=== PATIENT | female | born 1945 | race Caucasian/White ===

== ENCOUNTER 2016-10-26 06:25 | Inpatient (IN) | payer MEDICARE, BC ==
[~2016-10-26 06:25] MED LIST: Bupivacaine 0.5%/EPINEPHrine 1:200,000 50 ML MDV ONE; Meropenem 500 MG SDV ONE
[2016-10-26] MEDS ORDERED: Acetaminophen 500 MG Tab PO ONE (06:30)
[2016-10-26] MEDS ORDERED: Celecoxib 200 MG Cap PO ONE (06:30)
[2016-10-26] MEDS ORDERED: Neostigmine Methylsulfate 1 MG/ML 5 ML Syringe ONE (06:38)
[2016-10-26] MEDS ORDERED: Rocuronium 50 MG/5 ML Vial ONE (06:38)
[2016-10-26] MEDS ORDERED: Dexamethasone 4 MG/ML SDV ONE (06:38)
[2016-10-26] MEDS ORDERED: Succinylcholine 200 MG/10 ML MDV ONE (06:38)
[2016-10-26] MEDS ORDERED: Propofol 200 MG/20 ML SDV ONE (06:38)
[2016-10-26] MEDS ORDERED: Ondansetron 4 MG/2 ML SDV ONE (06:38)
[2016-10-26] MEDS ORDERED: Glycopyrrolate 0.2 MG/ML 5 ML MDV ONE (06:38)
[2016-10-26] MEDS ORDERED: Dextrose 5%-Lactated Ringers 1,000 ML IV SCH (07:00)
[2016-10-26] MEDS ORDERED: ceFAZolin 2 GM in Sodium Chloride 0.9% 50 ML IV ONE (07:45)
[2016-10-26] MEDS ORDERED: Linezolid 200 MG/100 ML Bag IRR ONE (08:30)
[2016-10-26] MEDS ORDERED: HYDROmorphone/Normal Saline 15 MG/30 ML PCA IV PRN (08:32)
[2016-10-26] MEDS ORDERED: Naloxone 0.4 MG/ML SDV IVPUSH PRN (08:32)
[2016-10-26] MEDS ORDERED: Naloxone 0.4 MG/ML SDV IV PRN (08:35)
[2016-10-26] MEDS ORDERED: Ketorolac 60 MG/2 ML SDV ONE (08:57)
[2016-10-26] MEDS ORDERED: Ondansetron 4 MG/2 ML SDV IVPUSH PRN (10:32)
[2016-10-26] MEDS: Dextrose 5%-Lactated Ringers 1,000 ML IV SCH ×2 (10:37→17:08)
[2016-10-26] MEDS: PARoxetine 20 MG Tab PO SCH (12:23)
[2016-10-26] MEDS: ceFAZolin 2 GM in Sodium Chloride 0.9% 50 ML IV SCH ×2 (14:01→21:20)
[2016-10-26] MEDS ORDERED: hydrOXYzine HCl 100 MG/2 ML SDV IM ONE (14:45)
[2016-10-26] MEDS ORDERED: Meperidine PF 100 MG/ML Syringe IM ONE (14:45)
[2016-10-27] MEDS: Dextrose 5%-Lactated Ringers 1,000 ML IV SCH (00:30)
[2016-10-27] MEDS: ceFAZolin 2 GM in Sodium Chloride 0.9% 50 ML IV SCH (05:13)
[2016-10-27] MEDS ORDERED: Propofol 200 MG/20 ML SDV ONE (06:10)
[2016-10-27] MEDS ORDERED: Glycopyrrolate 0.2 MG/ML 2 ML SDV IVPUSH ONE (07:30)
[2016-10-27] MEDS: PARoxetine 20 MG Tab PO SCH (10:22)
[2016-10-27 12:12] VITALS: BP 106/53
--- NOTE | 2016-10-27 17:52 | DISCH ---
FINAL DIAGNOSES: 1. Incarcerated ventral hernia. 2. Separate umbilical hernia. 3. Significant abdominal and pelvic adhesions. 4. Large gastric bezoar. 5. History of anxiety. 6. History of vaginal prolapse and cystocele. OPERATIVE PROCEDURES: On 10/26: 1. Diagnostic laparoscopy with:. a. Repair of umbilical hernia with mesh. b. Separate incarcerated ventral hernia with mesh. c. Placement of Interceed mesh to limit recurrent adhesion formation. On 10/27, the patient had upper GI endoscopy with antral biopsies for CLOtest. HOSPITAL COURSE: This is a 70-year-old who presented this week with increasing pain associated with a nonreducible upper abdominal midline hernia. After preoperative evaluation and discussion, wished to proceed with repair. This was repaired laparoscopically on the date of admission. The patient also had a small umbilical hernia, which was also covered with mesh and repaired. She had quite a bit in way of some pelvic adhesions which were then taken down and Interceed mesh was placed underneath the mesh and down toward the pelvis to limit recurrent adhesion formation. On 10/27, the patient underwent upper endoscopy to investigate some epigastric discomfort symptoms somewhat present. She was noted to have a very large gastric bezoar and will be sent home with an anti-bezoar diet. I had the anti-bezoar diet reviewed with the patient and prior to discharge. I also had the patient seen by Arya on the first postoperative visit regarding anti-bezoar diet. Otherwise, she will be discharged home today. She is to continue with home medications plus Dilaudid 2 mg p.o. q.4 hours p.r.n. pain, #20, Tylenol as needed for lesser pain. Follow up with Dr. Ramires at [facility] on 11/06/2016 and with Dietary to see the patient regarding anti- bezoar diet at that time. We will probably plan an upper endoscopy somewhere around six weeks to see if the bezoar has cleared. If that does not by dietary manipulation, we would consider then some promotility medication such as erythromycin and Reglan.
--- NOTE | 2016-10-28 10:31 | OR ---
DATE OF PROCEDURE: 10/26/2016 PREOPERATIVE DIAGNOSIS: Incarcerated ventral hernia. POSTOPERATIVE DIAGNOSES: 1. Incarcerated ventral hernia. 2. Separate umbilical hernia. 3. Extensive pelvic and abdominal wall adhesions. OPERATIVE PROCEDURES: Diagnostic laparoscopy with lysis of adhesions and: 1. Repair of incarcerated ventral hernia with mesh (73772). 2. Umbilical hernia repair with mesh (19328). 3. Placement of Interceed mesh to displace mesh and pelvic and abdominal wall from small bowel to limit recurrent adhesion formation (51340). ANESTHESIA: General. INDICATION FOR PROCEDURE: This 70-year-old female is presenting with an increasingly symptomatic incarcerated ventral hernia. Plan is to proceed with diagnostic laparoscopy with laparotomy if necessary with repair of the hernia with mesh. Potential risks including bleeding, infection, injury to the underlying viscera, problems with the mesh becoming infected or hernia recurring, as well as the remote possibility of cardiopulmonary, septic, or hemorrhagic complications leading to were discussed, and the patient wishes to proceed. DETAILS OF PROCEDURE: The patient was taken to the operating room and placed in a supine position. After general endotracheal anesthesia was induced, a Mullen catheter was inserted, and the abdomen was prepped and draped. In the left lateral midabdomen, a transverse incision was made and the peritoneal cavity entered under direct vision with an Optiview trocar and inflated to 15 mmHg with CO2. Laparoscope was then reinserted. No underlying trocar insertion site injuries were seen. Following this, 5 additional trocars were placed across the midabdomen and general exploration was undertaken. No underlying trocar insertion site injuries were seen. There were some adhesions located between the lower abdomen and pelvis, between small bowel and omentum. These were taken down with a combination of blunt and sharp dissection along with Harmonic scalpel dissection. Once these were completed, the area of herniation was inspected. The patient was noted to have a hernia occurring more or less at the base of the falciform ligament. Large amount of falciform ligament and the fat associated with that had prolapsed into the hernia. The peritoneum overlying this was incised, and the hernia site opened slightly with electrocautery. This allowed progressive reduction of the hernia contents which were then excised. The patient was noted to have a small associated umbilical hernia as well which was not incarcerated. At this point, a Ventralight hernia mesh with the positioning balloon system was selected, this being a 15.2 cm round configured mesh. This was soaked in antibiotic-containing saline solution and placed in the intraperitoneal location. Over the center of the ventral hernia, a small stab wound was placed and the balloon inflation catheter was then pulled up through that opening. The balloon was then inflated, and this provided good coverage over the primary ventral hernia as well as the umbilical hernia. The mesh was then fixed with 2 sequential layers of absorbable tacking screws. Upon completion of that, the balloon was deflated and withdrawn. Good fixation and coverage around the area of herniation were confirmed. At that point, no further problems were noted. Two 5-mm trocars were then placed, one in the left upper quadrant and one along in the left lower quadrant to limit recurrent adhesion formation. Interceed mesh was then placed underneath the mesh as well as extending down into the pelvis to limit recurrent adhesion formation between the pelvic and abdominal wall areas. At that point, the trocars were sequentially removed. The fascia at the 12-mm trocar site used for the camera was then closed with 0 Vicryl stitch and the skin with 4-0 Vicryl stitch at each incision. Dressing was applied. The patient was taken to the recovery room in a satisfactory condition. There were no evident complications. Yg Ramires MD /[id number]
--- NOTE | 2016-10-28 11:19 | OR ---
DATE OF PROCEDURE: 10/27/2016 PREOPERATIVE DIAGNOSIS: Epigastric discomfort. POSTOPERATIVE DIAGNOSIS: Epigastric discomfort associated with large gastric bezoar. OPERATIVE PROCEDURE: Upper GI endoscopy with antral biopsies for CLOtest. ANESTHESIA: IV sedation. INDICATION FOR PROCEDURE: The patient had been noting with some epigastric discomfort for some time, also had some history of ulcers in the past. Plan is to proceed with upper GI endoscopy with biopsies as indicated. Potential risks including bleeding and perforation were discussed and the patient wishes to proceed. DETAILS OF PROCEDURE: The patient was taken to the operating room and placed in a left lateral decubitus position. IV sedation was administered, after which the upper GI endoscope was passed orally through the length of the esophagus and into the stomach with retroflexion view of the fundus, and thereafter through the pyloric channel and into the junction of the third and fourth portions of the duodenum. Findings included normal hypopharynx, larynx, upper esophageal sphincter, and esophageal body. At the EG junction, there was no significant hiatal hernia present or inflammation. Upon entering the stomach, a very large gastric bezoar consisting of old vegetable matter predominantly was identified. This was associated with some redness with bezoar overlaid, but no real gastritis per se. The pyloric channel was widely opened, i.e. there was no gastric outlet obstruction, and the visualized portion of the duodenum was unremarkable. At this point, biopsies were obtained from the antrum and sent to establish the patient's H. pylori status by means of the CLOtest. The gastroscope was removed. The patient was taken to the recovery room in satisfactory condition. Yg Ramires MD /[id number]
== END 2016-10-27 13:35 | disposition home or self-care (01) | DRG 337 ==
LOC: JP.SDS 06:25 → JP.SDSSCHI 06:25 → EDSTATUS 07:30 → JP.MS 08:50
PROVIDERS: ADMIT Surgery; ATTEND Surgery
PROC: 3E0M05Z Introduction of Adhesion Barrier into Peritoneal Cavity, Open Approach (ICD-10-PCS; principal; 2016-10-26)
PROC: 0WUF4JZ Supplement Abdominal Wall with Synthetic Substitute, Percutaneous Endoscopic Approach (ICD-10-PCS; principal; 2016-10-26)
PROC: 0DNW4ZZ Release Peritoneum, Percutaneous Endoscopic Approach (ICD-10-PCS; principal; 2016-10-26)
PROC: 0DB68ZX Excision of Stomach, Via Natural or Artificial Opening Endoscopic, Diagnostic (ICD-10-PCS; 2016-10-27)
DX: K43.6 Other and unspecified ventral hernia with obstruction, without gangrene (principal); K42.9 Umbilical hernia without obstruction or gangrene; T18.2XXA Foreign body in stomach, initial encounter; X58.XXXA Exposure to other specified factors, initial encounter; K66.0 Peritoneal adhesions (postprocedural) (postinfection); R10.13 Epigastric pain; F41.9 Anxiety disorder, unspecified
CPT/HCPCS: 36415; 80053; 83735; 84100; 85027; 87081; 88302; 94762; A9270-GY; C1781; J0330; J0690; J1100; J1170; J1885; J2020; J2175; J2185; J2405; J2704; J2710; J3010; J3410; J3490; J7042; J7050

== ENCOUNTER 2016-12-24 07:14 | Day surgery (SDC) | payer MEDICARE, BC ==
[~2016-12-24 07:14] MED LIST changes: -Bupivacaine 0.5%/EPINEPHrine 1:200,000 50 ML MDV ONE; -Meropenem 500 MG SDV ONE; +Propofol 200 MG/20 ML SDV ONE; +fentaNYL 100 MCG/2 ML SDV ONE
[2016-12-24] MEDS ORDERED: Dextrose 5%-Lactated Ringers 1,000 ML IV SCH (07:45)
[2016-12-24] MEDS ORDERED: Glycopyrrolate 0.2 MG/ML 2 ML SDV IVPUSH ONE (08:30)
[2016-12-24] MEDS ORDERED: Propofol 200 MG/20 ML SDV ONE (09:46)
[2016-12-24 10:35] VITALS: BP 116/76
--- NOTE | 2016-12-25 16:53 | OR ---
DATE OF PROCEDURE: 12/24/2016 PREOPERATIVE DIAGNOSIS: Epigastric discomfort with history of bezoar. POSTOPERATIVE DIAGNOSES: 1. Persistent bezoar. 2. Mild diffuse gastritis. OPERATIVE PROCEDURE: Esophagogastroduodenoscopy with antral biopsies for CLOtest. ANESTHESIA: IV sedation. INDICATION FOR PROCEDURE: This is a 71-year-old female presenting with some epigastric discomfort with history of bezoar. She has been on an anti-bezoar diet for the past six weeks or so and is undergoing followup endoscopy to see if it is cleared. She has not been on any medical management except for the anti-bezoar diet. She continues on the omeprazole 20 mg a day. Plan will be to do an upper GI endoscopy with biopsies as indicated. Potential risks including bleeding and perforation were discussed, and the patient wishes to proceed. PROCEDURE IN DETAIL: The patient was taken to the operating room, placed in left lateral decubitus position. IV sedation was administered, after which the upper GI endoscope was passed orally through the length of esophagus and stomach with retroflexion view of the fundus, and thereafter through the pyloric channel into the proximal duodenum. Findings included normal hypopharynx, larynx, upper esophageal sphincter, and esophageal body. At the EG junction, a small hiatal hernia without significant inflammation was seen. Within the stomach at this time, no retained food, otherwise a small amount of bile present indicating that the anti-bezoar diet has been successful as far as the bezoar clearing. There was some mild diffuse redness in the stomach. Otherwise pyloric channel and the duodenum junction, 3rd and 4th portions were unremarkable. At this point, biopsies were obtained from the antrum and sent for CLOtest for H. pylori. Minimal bleeding from the biopsy sites was seen and the procedure then concluded. The patient was taken to the recovery room in satisfactory condition. Recommendation would be to continue the anti-bezoar diet long-term along with the omeprazole. If CLOtest is positive, we will contact regarding anti H. pylori regimen; otherwise, she will be following with Dr. Winkler in roughly 2 weeks at [facility] to follow up her abdominal bloating symptoms. Yg Ramires MD /[id number]
== END 2016-12-24 10:48 | disposition home or self-care (01) ==
LOC: JP.SDS 07:14
PROVIDERS: ATTEND Surgery
DX: K29.70 Gastritis, unspecified, without bleeding (principal); K44.9 Diaphragmatic hernia without obstruction or gangrene; T18.2XXA Foreign body in stomach, initial encounter; K59.09 Other constipation; F41.9 Anxiety disorder, unspecified; E11.9 Type 2 diabetes mellitus without complications; Z88.1 Allergy status to other antibiotic agents
CPT/HCPCS: 43239; 87081; J2704; J3010; J7042; J3490

== ENCOUNTER 2017-01-31 06:44 | Day surgery (SDC) | payer MEDICARE, BC ==
[2017-01-31] MEDS ORDERED: Dextrose 5%-Lactated Ringers 1,000 ML IV SCH (07:45)
[2017-01-31] MEDS ORDERED: Propofol 200 MG/20 ML SDV ONE (08:03)
[2017-01-31] MEDS ORDERED: Midazolam 1 MG/ML 2 ML SDV ONE (08:04)
[2017-01-31] MEDS ORDERED: fentaNYL 100 MCG/2 ML SDV ONE (08:04)
[2017-01-31 10:06] VITALS: BP 117/74
--- NOTE | 2017-02-03 12:32 | OR ---
DATE OF PROCEDURE: 01/31/2017 PREOPERATIVE DIAGNOSIS: Positive FIT test. POSTOPERATIVE DIAGNOSIS: Single 1 cm polyp at the distal sigmoid colon (30 cm from the dentate line). OPERATIVE PROCEDURE: Flexible colonoscopy with: 1. Polypectomy by snare technique (21665). 2. Injection of Adriana ink into colonic submucosa adjacent to a polypectomy site (79932). ANESTHESIA: IV sedation. INDICATION FOR PROCEDURE: The patient presents for colonoscopy following a positive FIT test. Plan is to proceed with a flexible colonoscopy with biopsies and/or polypectomy as indicated. Potential risks including bleeding and perforation were discussed, and the patient wishes to proceed. DETAILS OF PROCEDURE: The patient was taken to the operating room and placed in a left lateral decubitus position. IV sedation was administered, after which the initial digital rectal exam was performed. It was unremarkable. Colonoscope was then passed through the rectum with retroflexion revealing uncomplicated hemorrhoidal columns. The scope was eventually passed to the level of cecum. The prep was fairly good with there being only small amount of liquid stool present. The only abnormality noted was that of a single 1 cm polyp located at 30 cm from the dentate line. This was encircled at its base with the cautery snare and excised by that means. It was then placed in a basket and retrieved. Prior to removal of the scope of 4 mL of Ink was injected in submucosa adjacent to polypectomy site in the event that the histologic findings mandate a subsequent resection. Good hemostasis was noted and the polyp was removed. Apart from that, there were no areas of diverticular disease. No areas of colitis. No areas of additional polyps or signs of neoplasia. The scope was withdrawn, the above findings reconfirmed, and the procedure was then concluded. The plan will be to see the patient back next Friday to discuss followup. If this comes back tonight, we will call her and schedule a followup colonoscopy in 1-2 years depending on specific findings on the colonoscopy specimen. Yg Ramires MD /[id number]
== END 2017-01-31 10:30 | disposition home or self-care (01) ==
LOC: JP.SDS 06:44
PROVIDERS: ATTEND Surgery
DX: D12.6 Benign neoplasm of colon, unspecified (principal); Z88.1 Allergy status to other antibiotic agents; Z88.8 Allergy status to other drugs, medicaments and biological substances
CPT/HCPCS: 45381; 45385; J2250; J2704; J3010; J7042; 88305

== ENCOUNTER 2017-04-15 07:56 | Day surgery (SDC) | payer MEDICARE, BC ==
[~2017-04-15 07:56] MED LIST changes: +Bupivacaine 0.5%/EPINEPHrine 1:200,000 50 ML MDV ONE; -Propofol 200 MG/20 ML SDV ONE; -fentaNYL 100 MCG/2 ML SDV ONE
[2017-04-15] MEDS ORDERED: Acetaminophen 500 MG Tab PO ONE (08:00)
[2017-04-15] MEDS: Dextrose 5%-Lactated Ringers 1,000 ML IV SCH ×2 (08:16→18:33)
[2017-04-15] MEDS ORDERED: cefOXitin 2 GM in Sodium Chloride 0.9% 50 ML IV ONE (09:00)
[2017-04-15] MEDS ORDERED: Ropivacaine 25 ML, Dexamethasone 8 MG, EPINEPHrine 0.4 MG, Sodium Chloride 0.9% 52.6 ML NERVRT SCH ×4 (10:00)
[2017-04-15] MEDS ORDERED: fentaNYL 250 MCG/5 ML SDV ONE ×2 (10:13→12:05)
[2017-04-15] MEDS ORDERED: Rocuronium 50 MG/5 ML Vial ONE (10:13)
[2017-04-15] MEDS ORDERED: Ondansetron 4 MG/2 ML SDV ONE (10:13)
[2017-04-15] MEDS ORDERED: Propofol 200 MG/20 ML SDV ONE (10:13)
[2017-04-15] MEDS ORDERED: Succinylcholine/Normal Saline 200 MG/10 ML Syringe ONE (10:13)
[2017-04-15] MEDS ORDERED: Dexamethasone 4 MG/ML SDV ONE (10:13)
[2017-04-15] MEDS ORDERED: Neostigmine Methylsulfate 1 MG/ML 5 ML Syringe ONE (10:13)
[2017-04-15] MEDS ORDERED: HYDROmorphone/Normal Saline 15 MG/30 ML PCA IV PRN (10:57)
[2017-04-15] MEDS ORDERED: Naloxone 0.4 MG/ML SDV IV PRN (11:01)
[2017-04-15] MEDS ORDERED: Labetalol 20 MG/4 ML Syringe ONE (12:33)
[2017-04-15] MEDS ORDERED: Lactated Ringers 1,000 ML ONE (12:33)
[2017-04-15] MEDS ORDERED: fentaNYL 100 MCG/2 ML SDV IVPUSH ONE (12:49)
[2017-04-15] MEDS ORDERED: hydrOXYzine HCl 100 MG/2 ML SDV IM ONE (12:49)
[2017-04-15] MEDS ORDERED: Ondansetron 4 MG/2 ML SDV IVPUSH PRN (14:00)
[2017-04-15] MEDS: Acetaminophen/oxyCODONE 325-5 MG Tab PO PRN (15:51)
[2017-04-15] MEDS ORDERED: Pantoprazole 40 MG Vial IVPUSH SCH (16:00)
[2017-04-15] MEDS: cefOXitin 2 GM in Sodium Chloride 0.9% 50 ML IV SCH ×2 (16:07→22:36)
[2017-04-16] MEDS: Dextrose 5%-Lactated Ringers 1,000 ML IV SCH (03:30)
[2017-04-16] MEDS: cefOXitin 2 GM in Sodium Chloride 0.9% 50 ML IV SCH (05:31)
[2017-04-16] MEDS: Acetaminophen/oxyCODONE 325-5 MG Tab PO PRN ×2 (05:40→09:57)
[2017-04-16] MEDS ORDERED: PARoxetine 20 MG Tab PO SCH (09:00)
--- NOTE | 2017-04-16 09:42 | DISCH ---
ADMISSION DIAGNOSES: 1. Biliary dyskinesia. 2. Abdominal bezoar. 3. Anxiety. DISCHARGE DIAGNOSIS: Diagnostic laparoscopy with cholecystectomy and placement of Interceed mesh for biliary dyskinesia and extensive abdominal adhesions. Date of surgery 04/15/2017; Yg Ramires M.D. HISTORY: Patrizia Salcedo is a 71-year-old female with biliary dyskinesia. After preoperative evaluation, discussion of possible risks and possible complications, she wished to proceed with surgical procedure. HOSPITAL COURSE: Patrizia had her surgery on 04/15/2017. She had no operative complications. On postop day #1, her vital signs were stable. Pain controlled. Activity good. She was able to be discharged to home. DISPOSITION: Discharged to home. CONDITION: Stable and improving. FOLLOWUP APPOINTMENT: Sonia Jin PA-C, on 04/21/2017 at 10:00 a.m. DISCHARGE MEDICATIONS: New prescription: Percocet 5/325 mg 1 tablet every 4 hours p.r.n. pain, #20. She is sure she has some Percocet left at home. She is to resume her home medications. DIET AFTER DISCHARGE: Usual diet as tolerated. Drink 8 to 10 glasses of water a day. ACTIVITY: No lifting greater than 10 pounds for 2 weeks. Driving, do not drive for 2 weeks. Shower/bathing, may shower. DISCHARGE INSTRUCTIONS: Notify provider if any fever, nausea, or vomiting. Keep site clean and dry. Wear abdominal binder for 2 weeks and as tolerated. Use incentive spirometer 10 times every hour while awake for 1 week.
[2017-04-16 11:05] VITALS: BP 103/56
--- NOTE | 2017-04-21 14:17 | OR ---
DATE OF PROCEDURE: 04/15/2017 PREOPERATIVE DIAGNOSIS: Biliary dyskinesia. POSTOPERATIVE DIAGNOSES: 1. Biliary dyskinesia. 2. Extensive intraabdominal and pelvic adhesions. OPERATIVE PROCEDURES: 1. Diagnostic laparoscopy with:. a. Cholecystectomy (94615). b. Placement of Interceed mesh to displace pelvic and abdominal wall from underlying viscera to reduce recurrent adhesion formation (46064). ANESTHESIA: General. ASSISTANTS: Sonia Jin PA-C and FELIPA Arango3. INDICATION FOR PROCEDURE: This is a 71-year-old presenting with some upper abdominal pain and postprandial nausea. CCK-stimulated HIDA scan was obtained which showed a below normal ejection fraction. In lieu of availability of CCK, Ensure was given and this also in addition to resulting in a below normal ejection fraction, had significant reproduction of the patient's symptoms. Given this, she is to undergo a cholecystectomy. Potential risks of the procedure including bleeding, infection, injury to underlying viscera such as common bile duct, potential persistence of symptoms postoperatively, as well as possibility of cardiopulmonary, septic, or hemorrhagic complications leading to were all discussed, and the patient wishes to proceed. DETAILS OF PROCEDURE: The patient was taken to the operating room, placed in a supine position. After general endotracheal anesthesia was induced, the abdomen was prepped and draped. A transverse subumbilical incision was made and peritoneal cavity entered under direct vision and inflated to 15 mmHg pressure with CO2. The patient was noted to have quite striking adhesions between the previously placed upper abdominal mesh as well as some adhesions between the small bowel and pelvic sidewall on the left side. At this point, a 12- mm trocar was placed in the epigastric area above the level of adhesions as well as a single 5-mm right abdominal trocar. Between these two trocars, these adhesions were then sequentially taken down with Harmonic scalpel, and at that point, the attention was taken to the cholecystectomy. The gallbladder was retracted anterolaterally and was noted to have a fair bit of edema and the dissection began on the gallbladder neck, continued around the gallbladder neck cystic duct junction. Once that area was well delineated as was the adjacent cystic artery, both structures were clipped 3 times proximally and once distally and divided. The gallbladder was then dissected off the gallbladder bed using Harmonic scalpel and through the epigastric trocar site was noted again some fine sludge within it when inspected off the field. The area of dissection was inspected. No bleeding or other problems were noted at this point. To limit recurrent adhesion formation between both the pelvic wall and the upper abdominal mesh, Interceed mesh was placed across those areas to displace the viscera from those surfaces and reduce the likelihood of recurrent adhesion formation. Once this was accomplished, the trocars were sequentially removed. The fascia at the 12 mm sites was closed with 0 Vicryl stitch and the skin with 4-0 Vicryl skin stitch. Dressing was applied. The patient was taken to the recovery room in satisfactory condition. Physician anesthetic assistant, Sonia Jin, played an essential role in assisting in this case, helping to position the patient, retract structures as needed, as well as suturing and cutting sutures when indicated. Her presence improved patient's safety and decreased the operative time. Yg Rmaires MD /[id number]
== END 2017-04-16 12:55 | disposition home or self-care (01) ==
LOC: JP.SDS 07:56 → JP.2SS 12:40 → JP.SDS 04-16 12:55
PROVIDERS: ATTEND Surgery
DX: K81.1 Chronic cholecystitis (principal); N73.6 Female pelvic peritoneal adhesions (postinfective); F41.9 Anxiety disorder, unspecified; Z88.1 Allergy status to other antibiotic agents; Z86.010 Personal history of colon polyps; Z79.899 Other long term (current) drug therapy; Z87.891 Personal history of nicotine dependence
CPT/HCPCS: 36415; 44700; 47562; 82247; 84075; 85027; 88304; A9270; C9113; J0171; J0694; J1100; J2405; J2704; J2795; J3010; J3410; J7042; J7050; J7120

== ENCOUNTER 2020-04-04 05:59 | Day surgery (SDC) | payer MEDICARE ==
[2020-04-04] MEDS ORDERED: Dextrose 5%-Lactated Ringers 1,000 ML IV SCH (06:30)
[2020-04-04] MEDS ORDERED: fentaNYL 100 MCG/2 ML SDV ONE (07:10)
[2020-04-04] MEDS ORDERED: Propofol 200 MG/20 ML SDV ONE (07:10)
[2020-04-04] MEDS ORDERED: Glycopyrrolate 0.2 MG/ML 2 ML SDV ONE (07:50)
[2020-04-04 09:14] VITALS: BP 96/65; PULSE 79
--- NOTE | 2020-04-09 19:38 | OR ---
DATE OF PROCEDURE: 04/04/2020 SURGEON: Yg Ramires MD PREOPERATIVE DIAGNOSIS: History of colon polyps. POSTOPERATIVE DIAGNOSIS: Single recurrent polyp within the rectum. OPERATIVE PROCEDURE: Flexible colonoscopy with polypectomy by snare technique. ANESTHESIA: IV sedation. INDICATIONS FOR PROCEDURE: A 74-year-old female presenting for followup screening colonoscopy. She does have personal history of colon polyps. Plan is to proceed with a colonoscopy with biopsies and/or polypectomy as indicated. Potential risks including bleeding and perforation were discussed and the patient wishes to proceed. DETAILS OF PROCEDURE: The patient was taken to the operating room and placed in a left lateral decubitus position. IV sedation was administered after which the initial digital rectal exam was performed and was unremarkable. The colonoscope was then passed to the level of the cecum. The prep was quite good, only a small amount of liquid stool was present. To that level, there were no diverticula and no areas of colitis. The only area of polyp formation was within the midrectum, i.e. around 10 cm from the dentate line. This was an 8 mm polyp and this was encircled at its base and removed by means of the cautery snare technique and sent for histologic evaluation. Minimal bleeding from the polypectomy site was seen and the procedure then concluded. Assuming that the polyp was a benign adenomatous polyp, the next colonoscopy should be in 3 years. Yg Ramires MD /[id number]
== END 2020-04-04 09:23 | disposition home or self-care (01) ==
LOC: JP.SDS 05:59
PROVIDERS: ATTEND Surgery
DX: Z12.11 Encounter for screening for malignant neoplasm of colon (principal); K62.1 Rectal polyp; Z86.010 Personal history of colon polyps; Z88.1 Allergy status to other antibiotic agents
CPT/HCPCS: 45385; 88305; J2704; J3010; J3490; J7121

== ENCOUNTER 2020-07-11 06:42 | Day surgery (SDC) | payer MEDICARE ==
[2020-07-11] MEDS ORDERED: fentaNYL 100 MCG/2 ML SDV ONE (07:20)
[2020-07-11] MEDS ORDERED: Propofol 200 MG/20 ML SDV ONE (07:20)
[2020-07-11] MEDS ORDERED: Dextrose 5%-Lactated Ringers 1,000 ML IV SCH (07:30)
[2020-07-11 08:44] VITALS: BP 149/93; PULSE 69
--- NOTE | 2020-07-23 14:07 | OR ---
DATE OF PROCEDURE: 07/11/2020 SURGEON: Yg Ramires MD PREOPERATIVE DIAGNOSIS: History of gastric bezoar. POSTOPERATIVE DIAGNOSIS: Mild antral gastritis with small amount of retained bile, but no remaining bezoar. OPERATIVE PROCEDURE: Esophagogastroduodenoscopy with antral biopsies for CLOtest. ANESTHESIA: IV sedation. INDICATIONS FOR PROCEDURE: This is a 74-year-old female presenting with history of gastric bezoar. She is presently on omeprazole 20 mg a day and has been on an anti-bezoar type diet. She presents now for followup of upper endoscopy to establish . Potential risks of the procedure including bleeding and perforation were discussed, and the patient wishes to proceed. DETAILS OF PROCEDURE: The patient was taken to the operating room and placed in a left lateral decubitus position. IV sedation was administered, after which the upper GI endoscope was passed orally through the length of the esophagus and the stomach with retroflexion view of the fundus, thereafter through the pyloric channel and into the proximal duodenum. Findings included normal hypopharynx, larynx, upper esophageal sphincter, and esophageal body. In the stomach, there was a small amount of retained bile and some mild redness in the antrum. The previously noted bezoar now is entirely absent. The pyloric channel and proximal duodenum were unremarkable. At this point, biopsies were obtained from the antrum and sent for CLOtest for H pylori. No bleeding from the biopsy site was seen and the procedure then concluded. Recommendation will be to increase the omeprazole dose to 20 mg twice daily and otherwise continue the low residue anti-bezoar type diet. She will be following up with Dr. Winkler in 3 to 4 weeks. Yg Ramires MD /[id number]
== END 2020-07-11 08:55 | disposition home or self-care (01) ==
LOC: JP.SDS 06:42
PROVIDERS: ATTEND Surgery
DX: K29.70 Gastritis, unspecified, without bleeding (principal); Z86.19 Personal history of other infectious and parasitic diseases
CPT/HCPCS: 43239; 87081; J2704; J3010; J7121

== ENCOUNTER 2021-09-06 08:40 | Day surgery (SDC) | payer MEDICARE ==
[~2021-09-06 08:40] MED LIST changes: -Bupivacaine 0.5%/EPINEPHrine 1:200,000 50 ML MDV ONE; +Propofol 200 MG/20 ML SDV ONE; +fentaNYL 100 MCG/2 ML SDV ONE
[2021-09-06] MEDS ORDERED: Dextrose 5%-Lactated Ringers 1,000 ML IV SCH (09:15)
[2021-09-06 12:30] VITALS: BP 170/95; PULSE 74
== END 2021-09-06 12:50 ==
LOC: JP.SDS 08:40
PROVIDERS: ATTEND Surgery
DX: K29.70 Gastritis, unspecified, without bleeding (principal); K44.9 Diaphragmatic hernia without obstruction or gangrene; U07.1 COVID-19
CPT/HCPCS: 43239; 87081; J2704; J3010; J7121; U0002

== ENCOUNTER 2022-01-24 08:56 | Day surgery (SDC) | payer MEDICARE ==
[2022-01-24] MEDS ORDERED: Sodium Chloride 0.9% 10 ML Syringe FLUSH PRN (10:00)
[2022-01-24 10:05] VITALS: BP 157/95; PULSE 82
== END 2022-01-24 10:12 | disposition home or self-care (01) ==
LOC: JP.SDS 08:56
PROVIDERS: ATTEND Ophthalmology
DX: H26.9 Unspecified cataract (principal); Z88.1 Allergy status to other antibiotic agents
CPT/HCPCS: 66984; J3490; V2632

== ENCOUNTER 2022-03-14 07:43 | Day surgery (SDC) | payer MEDICARE ==
[2022-03-14 08:53] VITALS: BP 195/108; PULSE 85
[2022-03-14] MEDS ORDERED: Sodium Chloride 0.9% 10 ML Syringe FLUSH PRN (10:00)
== END 2022-03-14 08:55 | disposition home or self-care (01) ==
LOC: JP.SDS 07:43
PROVIDERS: ATTEND Ophthalmology
DX: H26.9 Unspecified cataract (principal); K21.9 Gastro-esophageal reflux disease without esophagitis; Z79.899 Other long term (current) drug therapy; Z88.1 Allergy status to other antibiotic agents
CPT/HCPCS: J3490; V2632

== ENCOUNTER 2023-06-26 17:29 | Emergency (ER) | payer MEDICARE ==
[2023-06-26 19:15] VITALS: BP 174/97; PULSE 99
== END 2023-06-26 18:35 | disposition home or self-care (01) ==
LOC: JP.ED 17:29
DX: H54.61 Unqualified visual loss, right eye, normal vision left eye (principal); Z88.1 Allergy status to other antibiotic agents; Z88.8 Allergy status to other drugs, medicaments and biological substances; Z79.899 Other long term (current) drug therapy; Z86.19 Personal history of other infectious and parasitic diseases; Z86.16 Personal history of COVID-19
CPT/HCPCS: 99283

== ENCOUNTER 2023-11-18 22:19 | Emergency (ER) | payer MEDICARE ==
[2023-11-18 22:59] VITALS: BP 120/64; PULSE 77
[2023-11-18 23:11] LABS: BASOPHILS PERCENT AUTO 0.2 % (0.1-1.3); EOSINOPHILS PERCENT AUTO 0.1 % (0.0-5.4); HEMATOCRIT 41.7 % (34.3-46.0); HEMOGLOBIN 14.4 g/dL (11.2-15.5); IMMATURE GRAN ABSOLUTE AUTO 0.14 K/uL (0.00-0.23); IMMATURE GRAN PERCENT AUTO 1.4 % (0.0-0.7); LYMPHOCYTES ABSOLUTE AUTO 1.42 K/uL (0.8-3.3); LYMPHOCYTES PERCENT AUTO 13.9 % (11.4-47.7); MEAN CORPUSCULAR HEMOGLOBIN 31.7 pg (31.6-35.5); MEAN CORPUSCULAR HGB CONC 34.5 g/dL (31.6-35.5); MEAN CORPUSCULAR VOLUME 91.9 fL (81.4-99.0); MONOCYTES ABSOLUTE AUTO 0.57 K/uL (0.20-0.90); MONOCYTES PERCENT AUTO 5.6 % (3.3-12.6); NEUTROPHILS ABSOLUTE AUTO 8.03 K/uL (1.0-7.6); NEUTROPHILS PERCENT AUTO 78.8 % (40.0-78.1); PLATELET COUNT,PLT 201 K/uL (130-375); RED BLOOD CELL COUNT 4.54 M/uL (3.77-5.24); WHITE BLOOD CELL COUNT,WBC 10.2 K/uL (3.2-11.0)
[2023-11-18] MEDS: Iopamidol 612 MG/ML 100 ML Bottle IV STA (23:13)
[2023-11-18 23:17] LABS: BASOPHILS ABSOLUTE AUTO 0.02 K/uL (0.00-0.10); EOSINOPHILS ABSOLUTE AUTO 0.01 K/uL (0.00-0.40)
[2023-11-18 23:22] LABS: CALCIUM 8.9 mg/dL (8.5-10.1); CREATININE 1.1 mg/dL (0.6-1.0); EST CRCL DRUG DOSING (CG) 30.18 mL/min; POTASSIUM,K 4.6 mmol/L (3.6-5.2)
[2023-11-18 23:57] LABS: ANION GAP 11.6 mmol/L (5.0-14.0)
[2023-11-19] MEDS: Acetaminophen 500 MG Tab PO ONE (00:57)
== END 2023-11-19 01:00 | disposition home or self-care (01) ==
LOC: JP.ED 22:19
DX: M54.50 Low back pain, unspecified (principal); Z90.710 Acquired absence of both cervix and uterus; Z79.899 Other long term (current) drug therapy; Z88.8 Allergy status to other drugs, medicaments and biological substances; Z88.1 Allergy status to other antibiotic agents; W01.198A Fall on same level from slipping, tripping and stumbling with subsequent striking against other object, initial encounter
CPT/HCPCS: 36415; 74176; 80048; 85025; 99284; A9270